=== PATIENT | female | born 1975 | race Caucasian/White ===

== ENCOUNTER 2022-02-06 20:05 | Inpatient (IN) | payer OTHER, SELFPAY ==
--- NOTE | ~2022-02-06 | CT_ITS ---
EXAMINATION: CT CHEST, ABDOMEN AND PELVIS WITH IV CONTRAST CLINICAL INFORMATION: Lung nodules. Peritoneal masses are in COMPARISON: Previous CT of the abdomen and pelvis and pelvic ultrasound from yesterday TECHNIQUE: Axial images through the chest, abdomen and pelvis following oral and 85 mL Omnipaque 350 intravenous contrast. Sagittal and coronal reconstructions on the technologist workstation were performed. Patient dose 151+3 3 9 mg/cm. This CT examination was performed using dose optimization techniques as appropriate, variously including the following: *Automated exposure control *Adjustment of mA and/or kV according to patient size (this includes techniques or standardized protocols for targeted exams where dose is matched to indication/reason for exam; i.e. extremities or head) *Use of iterative reconstruction technique FINDINGS: Chest: There is evidence of emphysema. There are innumerable small pulmonary nodules largest pulmonary nodules. Largest right pulmonary nodule measures 4 mm in the right upper lobe axial image 166 and right lower lobe axial image 341 series 7. Largest left pulmonary nodule measures 4 mm in the left lower lobe axial image 247 and axial image 340 series 7. There is a peripheral or subpleural 6 mm right lower lobe nodule axial image 228 series 7.. This may represent a subpleural lymph node. There is bilateral hilar and mediastinal lymphadenopathy. Largest lymph node is a right hilar lymph node measuring 1.2 x 1.4 cm. The heart does not appear enlarged. There is no pericardial effusion. There is coronary artery calcification. There is no pleural effusion or pleural thickening. No chest wall mass or enlarged axillary lymph nodes are seen in Visualized thyroid gland is unremarkable. Abdomen and pelvis: The liver and gallbladder are unremarkable. There is no biliary duct dilatation. The spleen is unremarkable. The pancreas is unremarkable. The adrenal glands are unremarkable. There is moderate right hydronephrosis. There is a 4 x 6 mm right lower pole renal stone. Left kidney is normal. The bladder is is not optimally distended. The bladder may be displaced anteriorly for example sagittal reconstructed image 48. There are multiple complex partially solid partially cystic pelvic masses. The ovaries are not identified as separate from these masses. The uterus may be identified and displaced anteriorly and sagittal reconstructed image 54. Mass or masses measure 20 cm in length and 20 cm in AP dimension and 14 cm in transverse dimension. There is a small amount of ascites decreased post paracentesis. No definite adenopathy is seen. Vascular structures are unremarkable. No hernia is seen. There is question of a sclerotic lesion in the superior T2 vertebral body. CT/CT abdomen pelvis w con IMPRESSION: Chest: Innumerable small pulmonary nodules. Bilateral hilar and mediastinal lymphadenopathy. Abdomen and pelvis: Large complex cystic partially solid pelvic mass/masses. Ascites. Moderate right hydronephrosis. 6 mm right renal stone. The uterus may be displaced anteriorly and inferiorly from the pelvic masses. Pelvic masses may be ovarian in origin.
--- NOTE | ~2022-02-06 | US_ITS ---
EXAMINATION: ULTRASOUND GUIDED PARACENTESIS. CLINICAL INFORMATION: Malignant ascites. COMPARISON: None TECHNIQUE: Following explaining ultrasound-guided paracentesis procedure, benefits and risk, a written consent was obtained. Patient was placed supine on ultrasound stretcher and preliminary ultrasound imaging was obtained through the abdomen. An optimal site was selected along the right mid quadrant and marked on the skin. The marked area was cleaned and draped in usual sterile manner. 1% lidocaine was injected puncture site. Through a small skin incision a 5 [place] Mediaeh catheter was advanced into the peritoneal space. After observing fluid return, the stylet was withdrawn and catheter connected to vacuum bottle via connecting cannula. After obtaining all fluid and observing no more fluid remaining, the catheter was removed and complete hemostasis achieved at puncture site, sterile dressing applied postprocedure. Patient tolerated procedure extremely well. Patient was monitored by IR nursing during the exam. No conscious sedation was utilized FINDINGS: There is a large amount of free fluid seen on on preliminary ultrasound imaging. Approximately 6.7 L of clear dark yellowish fluid was drained without immediate complications. None of this fluid was sent to lab. US/US paracentesis abd w/image IMPRESSION: Successful therapeutic paracentesis performed. Patient will get a CT abdomen pelvis with contrast following hydration.
--- NOTE | ~2022-02-06 | CT_ITS ---
EXAMINATION: CT ABDOMEN AND PELVIS WITHOUT CONTRAST CLINICAL INFORMATION: Abdominal distention COMPARISON: None TECHNIQUE: Multidetector volumetric imaging was performed from the superior aspect of the liver through the pubic symphysis. Sagittal and coronal reformatted images were obtained on the technologist's workstation. This CT examination was performed using dose optimization techniques as appropriate, variously including the following: *Automated exposure control *Adjustment of mA and/or kV according to patient size (this includes techniques or standardized protocols for targeted exams where dose is matched to indication/reason for exam; i.e. extremities or head) *Use of iterative reconstruction technique DLP: 590 mGy-cm FINDINGS: LUNG BASES: Mild basilar atelectasis. 4 mm nodule left base image 10. Cannot exclude 2 smaller nodules versus atelectatic change on image 14 laterally. Each 4 mm. LIVER, GALLBLADDER, AND BILIARY TREE: The liver is normal in size, shape, and attenuation. No focal hepatic lesion or biliary ductal dilatation is present. The gallbladder is unremarkable with no evidence of radiopaque gallstones, gallbladder wall thickening, or obvious pericholecystic inflammatory changes. PANCREAS: Unremarkable. SPLEEN: Unremarkable. ADRENAL GLANDS: The adrenal glands are not adequately visualized. No definitive finding in the region. KIDNEYS AND URETERS: The left kidney is within normal limits. Areas of decreased attenuation associated with the right kidney. Morphologically suggestive of hydronephrosis. Several negative Hounsfield units are noted. Fatty tumor cannot be excluded. Possible cystic change lower pole on right with a peripheral calcification. BLADDER: Bladder appears decompressed. GASTROINTESTINAL TRACT: There is significant ascites throughout the abdomen pelvis. The bowel pattern is felt to be nonobstructing. ABDOMINAL WALL: No significant hernia is appreciated. LYMPH NODES: Normal. VASCULAR: Unremarkable. PELVIC VISCERA: The deep pelvis shows a mixed cystic solid area and I suspect a large pelvic mass. Measures approximately 12 x 13 cm. Anterior to this may be another large mass versus unopacified bowel. The second area measures approximately 13.3 x 9.8 cm. OSSEOUS STRUCTURES: Unremarkable. CT/CT abdomen pelvis wo con IMPRESSION: This exam is abnormal. There is massive ascites present. In addition I suspect pelvic masses. Tumor needs to be considered. Ultrasound is recommended. In addition there is hydronephrosis of the right kidney likely present but the etiology is indeterminate here. Etiology could possibly be obstruction at the level of the questionable pelvic mass as described in the pelvis Some small lung nodules left base. These may be incidental but given the other findings described CT of the chest would be recommended. Fleischner guidelines were followed.
--- NOTE | ~2022-02-06 | US_ITS ---
EXAMINATION: US PELVIS CLINICAL INFORMATION: Pelvic mass. COMPARISON: CT of the abdomen and pelvis done on 02/06/2022. TECHNIQUE: Ultrasound of the pelvis is performed using transabdominal transducer along with Doppler. Transvaginal examination was not performed due to patient's discomfort and pain. FINDINGS: There are multiple solid-appearing hypervascular masses identified within the pelvis. Central areas of avascular hypoechogenicities are noted, may represent cystic degeneration versus necrosis. The visualized larger masses measures approximately 13.0 x 11.3 x 13.0 cm and 14.4 x 9.5 x 10.2 cm. Large amount of ascites fluid with internal low-level echoes is also noted. Nonvisualized uterus and ovaries. US/US pelvic complete IMPRESSION: 1. Concordant with prior CT study dated 02/06/2022, multiple hypervascular solid appearing masses are identified within the pelvis, the largest measures 14.4 cm. Large amount of ascites with low-level internal echoes is also present. 2. Nonvisualized uterus and ovaries.
[2022-02-06 20:13] VITALS: BP 142/103; PULSE 76; RESP 18; TEMP 36.6; O2SAT 100; BMI 20.8
[2022-02-06 20:31] LABS: MANUAL DIFF FLAG NO
[2022-02-06 20:35] LABS: Basophils Absolute Auto 0.1 X10*3/uL (0.0-0.2); Basophils Percent Auto 0.9 % (0-2); Eosinophils Absolute Auto 0.1 X10*3/uL (0.0-0.4); Eosinophils Percent Auto 1.3 % (0-4); Hematocrit 38.9 % (37.0-47.0); Imm Gran Abs Auto 0.04 X10*3/uL (0.00-0.03); Imm Gran Pct Auto 0.4 % (0.0-0.4); Lymphocytes Absolute Auto 1.7 X10*3/uL (1.2-4.9); Lymphocytes Percent Auto 15.8 % (20-40); Mean Corpuscular HGB Conc 33.4 g/dl (31.0-35.0); Mean Corpuscular Hemoglobin 27.1 pg (27.0-33.0); Mean Platelet Volume 9.3 fL (9.4-12.3); Monocytes Absolute Auto 0.6 X10*3/uL (0.1-1.2); Monocytes Percent Auto 5.7 % (2-11); Neutrophils Percent Auto 75.9 % (45-73); Platelet Count 451 X10*3/uL (160-400); Red Cell Distribution Width 16.7 % (11.0-16.0); White Blood Count 10.5 X10*3/uL (4.8-10.8)
[2022-02-06 21:10] LABS: Alanine Aminotransferase 8 U/L (0-31); Albumin Level 3.1 g/dL (3.5-5.0); Alkaline Phosphatase 111 U/L (39-117); Anion Gap 14 (12-20); Aspartate Amino Transferase 15 U/L (5-31); Bilirubin Total < 0.2 mg/dL (0.0-1.0); Blood Urea Nitrogen 22 mg/dL (9-16); Calcium 8.7 mg/dL (8.4-10.2); Carbon Dioxide 27 mmol/L (22-29); Chloride 99 mmol/L (96-108); Creatinine Clr Calc Pharmacy 37.6; Estimated Glomerular Filt Rate 32; Glucose Random 104 mg/dL (60-115); Sodium 136 mmol/L (135-145); Total Protein 6.5 g/dL (6.5-8.0)
[2022-02-06 21:42] LABS: Lipase 34 U/L (8-78)
[2022-02-06 21:47] LABS: Troponin-I High Sensitivity < 3.5 ng/L (<3.5-17.0)
--- NOTE | 2022-02-06 21:51 | ED.ABDPAIN ---
HPI - Abdominal Pain General Chief Complaint: Abdominal Pain Stated Complaint: abd swelling Time Seen by Provider: 02/06/22 21:10 Source: patient Mode of arrival: EMS History of Present Illness HPI narrative: 46-year-old female who lives at home with her kids presents via ambulance for complaints of abdominal pain and distension for the past 2 weeks associated with fevers and chills and denies any recent alcohol use. Specifically, patient states that she has not used alcohol in ?years?. Patient denies any chest pain/shortness of breath but states that she has a burning sensation extending up from her abdomen and denies any urinary symptoms. Otherwise, patient denies any hematemesis, melena/hematochezia. Related Data Allergies Allergy/AdvReac Type Severity Reaction Status Date / Time Sulfa (Sulfonamide Allergy Unknown HIVES, Unverified 06/14/20 15:48 Antibiotics) NAUSEA/VOMITING [SULFA (SULFONAMIDE ANTIBIOTICS)] sulfa Allergy Unknown Uncoded 07/23/17 00:00 Review of Systems Review of Systems Pertinent positives and negatives as stated in HPI 10 point review of systems is otherwise negative. [facility] Past Medical History Source: nursing notes reviewed Social History Social History Advance Directives: No Advance Directives Information Provided: Yes Physical Exam ED Vital Signs: Vital Signs - 24 hr 02/06/22 20:13 Temperature 97.8 F Pulse Rate 76 Respiratory Rate 18 Blood Pressure 142/103 H Pulse Oximetry 100 BMI result Body Mass Index 20.8 VITAL SIGNS: Reviewed. GENERAL: Cachectic, in no acute distress. HEAD: Normocephalic/atraumatic, bilateral temporal wasting EYES: PERRLA, EOMI, no scleral icterus EARS: Ext canals without abnormality OROPHARYNX: no oral lesions noted, posterior pharynx clear LUNGS: Normal breath sounds. No adventitious sounds or accessory muscle use. SpO2<100> CARDIOVASCULAR: Regular rate and rhythm without noted murmurs, no JVD or mild bilateral ankle swelling ABDOMEN: Soft, diffusely tender without rebound, dilated abdominal wall veins noted, mass noted at lower abdomen. MUSCULOSKELETAL: No tenderness, deformities, or effusions noted on gross inspection. EXTREMITIES: No cyanosis, clubbing or edema. SKIN: Inspection of the skin reveals no rashes, no jaundice appreciated. NEUROLOGIC: Alert and oriented x 4. Procedures Paracentesis Time Out Performed: Yes Local Anesthetic: lidocaine 1% Amount of anesthesia used (mL): 2.5 Fluid: clear and sent to lab for analysis Post Procedure Exam: awake, alert, normal BP, normal HR and normal SpO2 Patient Tolerated Procedure: well and no complications Complications: none Course Course Course Narrative: 46-year-old female with history and clinical presentation suggestive and concerning for likely intra-abdominal mass possibly ovarian there is no jaundice/icterus or recent/chronic alcohol intake to suggest liver cirrhosis and on review of liver labs remains unlikely. Review of all investigations consistent with intra-abdominal mass and suspect that patient's JANETT is secondary to CT reported possible compression by the mass. I discussed this case with the inpatient hospitalist who accepts admission. I did perform an ultrasound-guided paracentesis at the bedside with the removal of 3 L of ascites which was sent to the lab for further testing. Patient was consented before hand. Patient was informed of all results and findings. MDM - Abdominal Pain Lab Data Result diagrams: 02/06/22 20:27 02/06/22 20:43 Labs: Lab Results 02/06/22 02/06/22 02/06/22 Range/Units 20:27 20:27 20:43 WBC 10.5 (4.8-10.8) X10*3/uL RBC 4.80 (4.20-5.50) X10*6/uL Hgb 13.0 (12.0-16.0) g/dl Hct 38.9 (37.0-47.0) % MCV 81.0 (80.0-98.0) fL MCH 27.1 (27.0-33.0) pg MCHC 33.4 (31.0-35.0) g/dl RDW 16.7 H (11.0-16.0) % Plt Count 451 H (160-400) X10*3/uL MPV 9.3 L (9.4-12.3) fL Immature Gran % (Auto) 0.4 (0.0-0.4) % Neut % (Auto) 75.9 H (45-73) % Lymph % (Auto) 15.8 L (20-40) % [place] % (Auto) 5.7 (2-11) % Eos % (Auto) 1.3 (0-4) % Baso % (Auto) 0.9 (0-2) % Lymph # (Auto) 1.7 (1.2-4.9) X10*3/uL [place] # (Auto) 0.6 (0.1-1.2) X10*3/uL Eos # (Auto) 0.1 (0.0-0.4) X10*3/uL Baso # (Auto) 0.1 (0.0-0.2) X10*3/uL Abs Immat Gran (auto) 0.04 H (0.00-0.03) X10*3/uL Absolute Neuts (auto) 8.0 (2.0-8.3) x10*3/uL Absolute Nucleated RBC 0.000 (0.0-0.012) X10*3/uL Nucleated RBC % (auto) 0.0 (0.0-0.2) /100WBC Sodium 136 (135-145) mmol/L Potassium 4.0 (3.3-5.1) mmol/L Chloride 99 (96-108) mmol/L Carbon Dioxide 27 (22-29) mmol/L Anion Gap 14 (12-20) BUN 22 H (9-16) mg/dL Creatinine 1.69 H (0.5-1.4) mg/dL Estim Creat Clear Calc 37.6 Estimated GFR 32 Random Glucose 104 (60-115) mg/dL Calcium 8.7 (8.4-10.2) mg/dL Total Bilirubin < 0.2 (0.0-1.0) mg/dL AST 15 (5-31) U/L ALT 8 (0-31) U/L Alkaline Phosphatase 111 (39-117) U/L Lactate Dehydrogenase 193 (122-220) U/L Troponin I High Sens < 3.5 (<3.5-17.0) ng/L Total Protein 6.5 (6.5-8.0) g/dL Albumin 3.1 L (3.5-5.0) g/dL Lipase 34 (8-78) U/L Critical Care Time Critical Care Time Critical Care Time: Yes Total Critical Care Time: 30 Attestation: I personally attest to this time spent taking care of the patient. Discharge Plan Discharge Clinical Impression: Ascites, Pelvic mass, JANETT (acute kidney injury), Abdominal pain, Weight loss Patient Disposition: Admitted As Inpatient
[2022-02-06 22:27] VITALS: BP 131/89; PULSE 67; RESP 18; TEMP 36.8; O2SAT 96
--- NOTE | 2022-02-06 22:31 | PM.IMHP ---
History of Present Illness Date of Service: 02/06/22 Chief Complaint: Abdominal pain/distension 46-year-old female with a past medical history of tobacco dependence presented to the hospital with a chief complaint of abdominal pain/distension/weight loss. Patient reports that over the past 2-3 weeks he has been having gradually increasing abdominal distension; associated tenderness in the abdomen. Mentioned that she has decreased oral intake. Mentions she has decreased appetite and has been losing weight and lost almost 20 lb in 2 weeks. Denies any numbness tingling or focal weakness. Denies any fever chills. Reports he has chronic cough-attributes to her smoking history. Denies taking any home medications. Denies any toxic habits. Review of all other systems is negative except mentioned above ER course: Per ER team patient noted a significant abdominal distension; plan for diagnostic and therapeutic tap. CT abdomen showed new onset ascites with pelvic masses PMFSH Pertinent family history: Mother has breast cancer Social History Advance Directives: No Advance Directives Information Provided: Yes Meds Allergies Allergy/AdvReac Type Severity Reaction Status Date / Time Sulfa (Sulfonamide Allergy Unknown HIVES, Unverified 06/14/20 15:48 Antibiotics) NAUSEA/VOMITING [SULFA (SULFONAMIDE ANTIBIOTICS)] sulfa Allergy Unknown Uncoded 07/23/17 00:00 Physical Exam Vital Signs and Narrative: Vital Signs: Last Vital Signs Temp 98.3 F 02/06/22 22:27 Pulse 67 02/06/22 22:27 Resp 18 02/06/22 22:27 BP 131/89 02/06/22 22:27 Pulse Ox 96 02/06/22 22:27 BMI result Body Mass Index 20.8 Gen: Appears be in no acute distress; cachectic HEENT: NCAT, dry mucosa. Pulmonary: Vesicular breath sounds, fair air entry CVS: Normal S1-S2 Abdomen: BS+, distended, tender diffusely, fluid thrill present, mildly firm Extremities: Warm well perfused Neuro: Alert and awake. Grossly nonfocal Results Labs CBC and Chem 7: 02/06/22 20:27 02/06/22 20:43 Labs: Laboratory Results - last 24 hr 02/06/22 02/06/22 02/06/22 20:27 20:27 20:43 MCV 81.0 MCH 27.1 MCHC 33.4 RDW 16.7 H Plt Count 451 H MPV 9.3 L Immature Gran % (Auto) 0.4 Neut % (Auto) 75.9 H Lymph % (Auto) 15.8 L [place] % (Auto) 5.7 Eos % (Auto) 1.3 Baso % (Auto) 0.9 Lymph # (Auto) 1.7 [place] # (Auto) 0.6 Eos # (Auto) 0.1 Baso # (Auto) 0.1 Abs Immat Gran (auto) 0.04 H Absolute Neuts (auto) 8.0 Absolute Nucleated RBC 0.000 Nucleated RBC % (auto) 0.0 Anion Gap 14 Estim Creat Clear Calc 37.6 Estimated GFR 32 Random Glucose 104 Calcium 8.7 Total Bilirubin < 0.2 AST 15 ALT 8 Alkaline Phosphatase 111 Troponin I High Sens < 3.5 Total Protein 6.5 Albumin 3.1 L Lipase 34 Imaging Radiologist's Impressions: Impressions Abdomen/Pelvis CT 02/06/22 21:57 IMPRESSION: This exam is abnormal. There is massive ascites present. In addition I suspect pelvic masses. Tumor needs to be considered. Ultrasound is recommended. In addition there is hydronephrosis of the right kidney likely present but the etiology is indeterminate here. Etiology could possibly be obstruction at the level of the questionable pelvic mass as described in the pelvis Some small lung nodules left base. These may be incidental but given the other findings described CT of the chest would be recommended. Fleischner guidelines were followed. Assessment and Plan (1) Ascites: Status: Acute (2) Pelvic mass: Status: Acute (3) JANETT (acute kidney injury): Status: Acute (4) Abdominal pain: Status: Acute (5) Weight loss: Status: Acute Plan 46-year-old female with a past medical history of tobacco dependence presented to the hospital with a chief complaint of abdominal pain/distension/weight loss. Noted to have following New onset ascites: Diagnostic/therapeutic staff being performed in the ER. Will follow-up studies. Pain control Liver panel within normal limits. Question malignant ascites-given pelvic masses Oncology consult Pelvic ultrasound JANETT: Concern for hepatorenal. Nephrology consult. Avoid nephrotoxins Protein calorie malnutrition: Nutrition consult DVT prophylaxis: Subcu heparin Code status: Full code Quality Stroke Does the patient have a stroke diagnosis?: No VTE Prior VTE?: No VTE Risk Level:: Medical - moderate - high VTE Device Contraindication: Treatment Not Indicated VTE Drug Contraindication: N/A - Med Ordered
[2022-02-06 23:07] LABS: Lactate Dehydrogenase 193 U/L (122-220)
[2022-02-06 23:29] VITALS: BP 124/77; PULSE 57; RESP 18; O2SAT 97
[2022-02-06 23:36] VITALS: BP 126/77; PULSE 54; RESP 18; O2SAT 98
[2022-02-06 23:41] VITALS: BP 125/74; PULSE 55; RESP 18; O2SAT 98
--- NOTE | 2022-02-06 23:49 | PC.NURSE ---
Pt had 3L of fluid drained with paracentesis. BP stable throughout procedure. Pt resting comfortably at this time with decreased pain.
[2022-02-06 23:54] LABS: MN% 87.4 %; PMN% 12.6 %; RBC Peritoneal Fluid 0.002 X10*6/uL; WBC Peritoneal Fluid 0.404 X10*3/uL
[2022-02-07] VITALS (8 sets, daily range): BP systolic 116–140; BP diastolic 73–91; PULSE 56–69; RESP 16–18; TEMP 36.6–36.9; O2SAT 97–99
[2022-02-07] LABS: COVID-19 Test Negative (Negative); IDNOW Serial# 08D9AD1C
[2022-02-07 00:01] LABS: Influenza A Negative (Negative); Influenza B2 Negative (Negative)
[2022-02-07 00:12] LABS: BF Shift QC OK YES; Lymphocyte Peritoneal Fl 29 %; Man Diluent Bkgrd OK YES; Monocytes Peritoneal Fl 4 %; Neutrophils Peritoneal Fluid 5 %; Other Peritioneal Fl 62 %
[2022-02-07] MEDS: 0.9 % Sodium Chloride Flush 3 ML SYRINGE IVFLUSH ×2 (00:36→09:13)
[2022-02-07 06:47] LABS: MANUAL DIFF FLAG NO
[2022-02-07 06:54] LABS: Basophils Absolute Auto 0.1 X10*3/uL (0.0-0.2); Basophils Percent Auto 0.9 % (0-2); Eosinophils Percent Auto 0.4 % (0-4); Hematocrit 37.3 % (37.0-47.0); Hemoglobin 12.2 g/dl (12.0-16.0); Imm Gran Abs Auto 0.04 X10*3/uL (0.00-0.03); Imm Gran Pct Auto 0.4 % (0.0-0.4); Lymphocytes Absolute Auto 1.3 X10*3/uL (1.2-4.9); Lymphocytes Percent Auto 14.1 % (20-40); Mean Corpuscular HGB Conc 32.7 g/dl (31.0-35.0); Mean Corpuscular Hemoglobin 26.6 pg (27.0-33.0); Mean Corpuscular Volume 81.4 fL (80.0-98.0); Mean Platelet Volume 9.7 fL (9.4-12.3); Monocytes Absolute Auto 0.6 X10*3/uL (0.1-1.2); Monocytes Percent Auto 6.2 % (2-11); Platelet Count 436 X10*3/uL (160-400); Red Blood Count 4.58 X10*6/uL (4.20-5.50); Red Cell Distribution Width 16.5 % (11.0-16.0)
[2022-02-07 07:23] LABS: Anion Gap 17 (12-20); Blood Urea Nitrogen 20 mg/dL (9-16); Calcium 8.7 mg/dL (8.4-10.2); Carbon Dioxide 24 mmol/L (22-29); Chloride 99 mmol/L (96-108); Creatinine Clr Calc Pharmacy 41.5; Estimated Glomerular Filt Rate 36; Glucose Random 94 mg/dL (60-115); Potassium 4.6 mmol/L (3.3-5.1); Sodium 135 mmol/L (135-145)
--- NOTE | 2022-02-07 08:44 | PHA.MEDREC ---
Pharmacy Consult ? Medication Reconciliation Pharmacy has completed the medication reconciliation. spoke with patient- patient is not taking any medications, rx or otc
[2022-02-07] MEDS: HYDROmorphone HCl 0.5 MG/0.5 ML SYRINGE IVPUSH ×4 (09:09→21:13)
--- NOTE | 2022-02-07 09:18 | PC.NURSE ---
pt came back from us pt is alert and oriented skin pwd, respirations even and unlabored, pt abd hard and distended and pt reports pain 6/10 denies nausea at this time, vs stable
--- NOTE | 2022-02-07 10:02 | PC.NURSE ---
pt reports feeling better pain at 1/10
[2022-02-07 12:00] LABS: pH Peritoneal Fluid 7.54
[2022-02-07 12:02] LABS: Albumin Peritoneal Fluid 2.9; LDH Peritoneal Fluid 233; Total Protein Peritoneal Fluid 4.7
[2022-02-07 12:03] LABS: Amylase Peritoneal Fluid 32; Glucose Peritoneal Fluid 92
--- NOTE | 2022-02-07 12:36 | P.CNHO_ITS ---
Subjective - Subjective Chief complaint: Consult for: Ascites. Ovarian/Peritoneal disease. Patient: new to practice Consult date: 02/07/22 Primary Care Provider: None Physician Medical Summary: DIAGNOSIS: ASCITES. OVARIAN MASS. HPI - Consult Narrative Reason for consult: Consult For: 1. Ascites. 2. Adnexal mass. Narrative: Sheela Austin is a pleasant 46 year old lady, who presented with the complaints: of abdominal pain and distension/weight loss. She mentioned that over the past 2-3 weeks he has been having gradually increasing abdominal distension; with abdominal pain, associated tenderness in the abdomen. She also mentioned that she has decreased po intake. She has decreased appetite and has lost almost 20 lb in 2 weeks. Denies any numbness tingling or focal weakness. Denies any fever chills. Reports he has chronic cough-attributes to her smoking history. Denies taking any home medications. Denies any toxic habits. Review of all other systems is negative except mentioned above. ER course: She noted a significant abdominal distension. CT abdomen from 02/06: This exam is abnormal. There is massive ascites present. In addition I suspect pelvic masses. Tumor needs to be considered. Ultrasound is recommended. In addition there is hydronephrosis of the right kidney likely present but the etiology is indeterminate here. Etiology could possibly be obstruction at the level of the questionable pelvic mass as described in the pelvis. Some small lung nodules left base. These may be incidental but given the other findings described CT of the chest would be recommended. CT abdomen showed new onset ascites with pelvic masses. She underwent paracentesis with removal of 3 L of fluids. The results are not back yet. Past medical history of: Tobacco dependence. FAMILY HISTORY: She does have a family history of malignancies. One of these is colon cancer. 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 She is not . She has 3 children. She smokes a pack a day. Denies alcohol. ROS: She complains of easy fatigability. Denies fever chills or night sweats. Appetite has been on existing. She lost 40 lb over the past 6 months. She does complain of headaches and dizziness. She complains of chest pain and trouble breathing due to abdominal distension. She has abdominal distension and belly pain and tenderness. Complains of nausea but not vomiting. Her bowels are rather constipated. Denies gross blood in the stools. She has increased frequency of micturition. Complains of diffuse body aches. Has lower extremity weakness. She does feel rather depressed. No skin rashes or pruritus. Review of Systems - Constitutional Reports system reviewed and no additional complaints, except as documented, Reports fatigue, Reports poor appetite, Reports weakness, Reports weight loss, Denies fever(s), Denies weight gain - Eyes Reports system reviewed and no additional complaints, except as documented - ENT Reports system reviewed and no additional complaints, except as documented - Cardiovascular Reports system reviewed and no additional complaints, except as documented - Respiratory Reports no additional respiratory complaints - Gastrointestinal Reports system reviewed and no additional complaints, except as documented, Reports bloating, Reports constipation, Reports feeling full early, Reports dyspepsia, Reports heartburn, Reports nausea - Genitourinary Reports no additional female genitourinary complaints - Musculoskeletal Reports system reviewed and no additional complaints, except as documented - Integumentary/Breasts Skin/Breast: Reports no additional skin complaints - Neurologic Reports system reviewed and no additional complaints, except as documented, Reports weakness Comments: Headache and dizziness. - Psychiatric Reports system reviewed and no additional complaints, except as documented - Endocrine Reports no additional endocrine complaints - Hematologic/Lymphatic Reports system reviewed and no additional complaints, except as documented - Allergic/Immunologic Reports system reviewed and no additional complaints, except as documented Oncology Screenings - ECOG Performance Status ECOG Performance Status: 1 [facility] Social History: Social History (Last Reviewed 02/06/22 @ 21:53 by Britany Julien MD) Tobacco History: Patient Tobacco Use Status: Never used Tobacco Second Hand Smoke Exposure: Yes Substance Use History: Use of substances other than those prescribed or required for medical reasons : No Advance Directives: Advance Directives: No Advance Directives Information Provided: Yes Occupation Assessmet: service: No Current occupational status: unemployed Second hand tobacco smoke exposure: Yes Home Medications and Allergies Current Medications: Current Medications Acetaminophen (Acetaminophen 325 Mg Tablet) 650 mg PO Q6H PRN PRN Reason: Pain, Mild (Pain Scale 1-3) Hydromorphone HCl (Hydromorphone Hcl 0.5 Mg/0.5 Ml Syringe) 0.5 mg IVPUSH Q4H P RN; Protocol PRN Reason: Pain, Severe (Pain Scale 7-10) Last Admin: 02/07/22 09:09 Dose: 0.5 mg Documented by: Pharmacy Consult (Consult Rx Perform Med Rec) 1 each MISCELLANE ONCE PRN PRN Reason: Consult order Sodium Chloride (0.9 % Sodium Chloride Flush 3 Ml Syringe) 3 ml IVFLUSH QSHIFT [facility] Last Admin: 02/07/22 09:13 Dose: 3 ml Documented by: Home Medications Medication Instructions Recorded Confirmed Type No Known Home Meds 02/07/22 02/07/22 History Allergies Allergy/AdvReac Type Severity Reaction Status Date / Time Sulfa (Sulfonamide Allergy Unknown HIVES, Unverified 06/14/20 15:48 Antibiotics) NAUSEA/VOMITING [SULFA (SULFONAMIDE ANTIBIOTICS)] sulfa Allergy Unknown Uncoded 07/23/17 00:00 Physical Exam Vital signs: Vital Signs Temp 98.4 F 02/07/22 09:04 Pulse 64 02/07/22 09:04 Resp 18 02/07/22 09:04 BP 125/82 02/07/22 09:04 Pulse Ox 97 02/07/22 09:04 Intake & Output 02/06/22 02/07/22 02/07/22 18:59 06:59 18:59 Other: Weight 58.5 kg Weight 58.5 kg - Constitutional Present: moderate distress - Routine HEENT Exam Head: Present: normal inspection, normocephalic ENT: Present: mucous membranes moist - Routine Neck Exam Absent: lymphadenopathy, thyromegaly - Routine Respiratory Exam Present: CTAB - Routine Abdominal Exam Present: distended, normal bowel sounds, tenderness - Routine Extremities Exam Present: nontender - Routine Skin Exam Present: intact - Routine Neurological Exam Present: alert, oriented X3 - Detailed Neurological Exam: Coma Scale Eye Opening: Spontaneous (4) Verbal Response: Oriented (5) Motor Response: Obeys commands (6) Juan Coma Scale Total: 15 Hem/Onc Consult Result - Labs CBC & Chem 7: 02/07/22 06:25 02/07/22 06:25 Labs: Short CBC 02/06/22 02/07/22 Range/Units 20:27 06:25 WBC 10.5 9.0 (4.8-10.8) X10*3/uL Hgb 13.0 12.2 (12.0-16.0) g/dl Hct 38.9 37.3 (37.0-47.0) % Plt Count 451 H 436 H (160-400) X10*3/uL BMP 02/06/22 02/07/22 20:43 06:25 Sodium 136 135 Potassium 4.0 4.6 Chloride 99 99 Carbon Dioxide 27 24 BUN 22 H 20 H Creatinine 1.69 H 1.53 H Calcium 8.7 8.7 Liver Function 02/06/22 Range/Units 20:43 Total Bilirubin < 0.2 (0.0-1.0) mg/dL AST 15 (5-31) U/L ALT 8 (0-31) U/L Alkaline Phosphatase 111 (39-117) U/L Albumin 3.1 L (3.5-5.0) g/dL Assessment and Plan Patient Active problem list reviewed?: Yes (1) Pelvic mass Status: Acute Assessment and plan: This is a pleasant 46-year-old lady who presents with abdominal distension, pain, early satiety and weight loss. CT abdomen from 02/06: This exam is abnormal. There is massive ascites present. In addition I suspect pelvic masses. Tumor needs to be considered. Ultrasound is recommended. In addition there is hydronephrosis of the right kidney likely present but the etiology is indeterminate here. Etiology could possibly be obstruction at the level of the questionable pelvic mass as described in the pelvis. Some small lung nodules left base. These may be incidental but given the other findings described CT of the chest would be recommended. She underwent a paracentesis with removal of 3 L of fluid in the ED. results of that are pending. I reviewed imaging with the radiologist. Pelvic ultrasound done today revealed: 1. Concordant with prior CT study dated 02/06/2022, multiple hypervascular solid appearing masses are identified within the pelvis, the largest measures 14.4 cm. Large amount of ascites with low-level internal echoes is also present. 2. Nonvisualized uterus and ovaries. CEA level: 1204. LDH: 193. CA 125: Pending. Patient most likely has ovarian carcinoma. PLAN: Will set appointment with Dr.Tashanna Xavier dehydrogenation converter helper Oncology at [facility] in the near future. Appointment has been set up for Thursday. Meanwhile institute symptom control. Thank you, Cc: Myers. Sánchez. - Time Spent With Patient Time Spent with Patient (in minutes): 35
--- NOTE | 2022-02-07 12:42 | MHC.CM.PN ---
Met with pt to discuss d/c plan: pt resides alone without services or DME. is Dr. Juan mckenzie x3 with [employer] [facility] [employer] x 1. Pt states no barriers to care: has a supportive dtr and sister who can assist if needed. At this time, it seems likely that pt will be able to return to home with outpt services however, CM will follow for changes in plan. Pt's dtr to transport.
--- NOTE | 2022-02-07 13:04 | PM.GYNCN ---
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 The patient has been having gradual increase in abdominal distention treated with tenderness over the last 2-3 weeks associated with decrease in oral intake, decreased appetite and weight loss around 20 lb in the last [address] abdomen on 02/06 showed the following This exam is abnormal. There is massive ascites present. In addition I suspect pelvic masses. Tumor needs to be considered. Ultrasound is recommended. In addition there is hydronephrosis of the right kidney likely present but the etiology is indeterminate here. Etiology could possibly be obstruction at the level of the questionable pelvic mass as described in the pelvis. Some small lung nodules left base. These may be incidental but given the other findings described CT of the chest would be recommended. Pelvic ultrasound done this morning showed the followin. Concordant with prior CT study dated 02/06/2022, multiple hypervascular solid appearing masses are identified within the pelvis, the largest measures 14.4 cm. Large amount of ascites with low-level internal echoes is also present. 2. Nonvisualized uterus and ovaries. The patient underwent paracentesis with removal of 3 L of fluids. The results are not back yet. cc:: CC: Tone Sánchez MD [facility] Social History Social History Patient Tobacco Use Status: Never used Tobacco Second Hand Smoke Exposure: Yes Use of substances other than those prescribed or required for medical reasons: No Advance Directives: No Advance Directives Information Provided: Yes service: No Current occupational status: unemployed Meds Allergies Allergy/AdvReac Type Severity Reaction Status Date / Time Sulfa (Sulfonamide Allergy Unknown HIVES, Unverified 06/14/20 15:48 Antibiotics) NAUSEA/VOMITING [SULFA (SULFONAMIDE ANTIBIOTICS)] sulfa Allergy Unknown Uncoded 07/23/17 00:00 Active Medications: Current Medications Acetaminophen (Acetaminophen 325 Mg Tablet) 650 mg PO Q6H PRN PRN Reason: Pain, Mild (Pain Scale 1-3) Hydromorphone HCl (Hydromorphone Hcl 0.5 Mg/0.5 Ml Syringe) 0.5 mg IVPUSH Q4H PRN; Protocol PRN Reason: Pain, Severe (Pain Scale 7-10) Last Admin: 02/07/22 12:53 Dose: 0.5 mg Documented by: Sodium Chloride (Ns) 1,000 mls @ 150 mls/hr IVCONT .Q6H40M [facility] Stop: 02/07/22 19:39 Pharmacy Consult (Consult Rx Perform Med Rec) 1 each MISCELLANE ONCE PRN PRN Reason: Consult order Sodium Chloride (0.9 % Sodium Chloride Flush 3 Ml Syringe) 3 ml IVFLUSH QSHIFT [facility] Last Admin: 02/07/22 09:13 Dose: 3 ml Documented by: Home Medications Medication Instructions Recorded Confirmed Last Taken Type No Known Home Meds 02/07/22 02/07/22 Unknown History 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 Physical Exam Vitals Vital signs: Temp Pulse Resp BP Pulse Ox 98.4 F 64 18 125/82 97 02/07/22 09:04 02/07/22 09:04 02/07/22 09:04 02/07/22 09:04 02/07/22 09:04 BMI result Body Mass Index 20.8 Abdomen Auscultation/Inspection/Palpation: Normal bowel sounds, Distended, Tenderness (Diffuse tenderness) and Other (fluid thrill present) Female Genitalia (Pelvic) Bladder/Urethra: Normal meatus Vulva: No lesions Cervix: Grossly normal Adnexa/Parametria: Parametrial Tenderness: Bilateral and Parametrial Mass: Bilateral Additional Comments: Twenty-two week size mass nonmobile adherent to the pelvic sidewalls and the cul-de-sac [employer]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 - Results Labs CBC & Chem 7: 02/07/22 06:25 02/07/22 06:25 Labs: Short CBC 02/06/22 02/07/22 Range/Units 20:27 06:25 WBC 10.5 9.0 (4.8-10.8) X10*3/uL Hgb 13.0 12.2 (12.0-16.0) g/dl Hct 38.9 37.3 (37.0-47.0) % Plt Count 451 H 436 H (160-400) X10*3/uL BMP 02/06/22 02/07/22 20:43 06:25 Sodium 136 135 Potassium 4.0 4.6 Chloride 99 99 Carbon Dioxide 27 24 BUN 22 H 20 H Creatinine 1.69 H 1.53 H Calcium 8.7 8.7 Liver Function 02/06/22 Range/Units 20:43 Total Bilirubin < 0.2 (0.0-1.0) mg/dL AST 15 (5-31) U/L ALT 8 (0-31) U/L Alkaline Phosphatase 111 (39-117) U/L Albumin 3.1 L (3.5-5.0) g/dL Imaging US - abdomen: Radiologist's impression: ITS Impressions Abdomen/Pelvis CT 02/06/22 21:57 IMPRESSION: This exam is abnormal. There is massive ascites present. In addition I suspect pelvic masses. Tumor needs to be considered. Ultrasound is recommended. In addition there is hydronephrosis of the right kidney likely present but the etiology is indeterminate here. Etiology could possibly be obstruction at the level of the questionable pelvic mass as described in the pelvis Some small lung nodules left base. These may be incidental but given the other findings described CT of the chest would be recommended. Fleischner guidelines were followed. Pelvis Ultrasound 02/07/22 08:50 IMPRESSION: 1. Concordant with prior CT study dated 02/06/2022, multiple hypervascular solid appearing masses are identified within the pelvis, the largest measures 14.4 cm. Large amount of ascites with low-level internal echoes is also present. 2. Nonvisualized uterus and ovaries. Assessment and Plan (1) Pelvic mass: Status: Acute Discussed with the patient differential diagnosis of the findings include but not limited to: core oven tender or non core oven tender malignancies, highly suspicious of ovarian cancer. CEA 1204, CA 125 pending. 4 mm left lung base nodule, rule out metastatic disease; Hydronephrosis with acute kidney injury, suspect ureteral obstruction secondary to the pelvic mass. If JANETT does not improve, consider urology consult. Recommend referral to [facility] Consultant Oncology at [facility] for further management. The patient has an appointment on Thursday Dr. Xavier at [facility] core oven tender Oncology in the office.
--- NOTE | 2022-02-07 13:13 | PC.NURSE ---
patient to IR at this time
--- NOTE | 2022-02-07 13:48 | P.PNIM_ITS ---
Subjective Subjective Date of Service: 02/07/22 Interval History: Abdominal distension/pain improved No FHx of ovarian, uterine, or breast CA States had normal Pap 1 yr ago Review of Systems Review of Systems: Yes all other systems are reviewed and are negative Physical Exam Vital Signs: Vital Signs: Last Vital Signs Temp 98.4 F 02/07/22 09:04 Pulse 64 02/07/22 09:04 Resp 18 02/07/22 09:04 BP 125/82 02/07/22 09:04 Pulse Ox 97 02/07/22 09:04 BMI result Body Mass Index 20.8 Gen: in no acute distress HEENT: sclera anicteric, moist mucus membranes Neck: supple Lungs: clear to auscultation bilaterally Heart: regular rate and rhythm, no murmurs Abd: tense ascites Ext: no edema Skin: warm/well-perfused Neuro: alert and oriented x3, no focal findings Psych: appropriate affect Objective Data Active Medications Acetaminophen (Acetaminophen 325 Mg Tablet) 650 mg PO Q6H PRN PRN Reason: Pain, Mild (Pain Scale 1-3) Hydromorphone HCl (Hydromorphone Hcl 0.5 Mg/0.5 Ml Syringe) 0.5 mg IVPUSH Q4H PRN; Protocol PRN Reason: Pain, Severe (Pain Scale 7-10) Last Admin: 02/07/22 12:53 Dose: 0.5 mg Documented by: MALDONADO Sodium Chloride (Ns) 1,000 mls @ 150 mls/hr IVCONT .Q6H40M [facility] Stop: 02/07/22 19:39 Pharmacy Consult (Consult Rx Perform Med Rec) 1 each MISCELLANE ONCE PRN PRN Reason: Consult order Sodium Chloride (0.9 % Sodium Chloride Flush 3 Ml Syringe) 3 ml IVFLUSH QSHIFT [facility] Last Admin: 02/07/22 09:13 Dose: 3 ml Documented by: LITA Labs CBC & Chem 7: 02/07/22 06:25 02/07/22 06:25 Labs: Laboratory Results - last 24 hr 02/06/22 02/06/22 02/06/22 20:27 20:27 20:43 MCV 81.0 MCH 27.1 MCHC 33.4 RDW 16.7 H Plt Count 451 H MPV 9.3 L Immature Gran % (Auto) 0.4 Neut % (Auto) 75.9 H Lymph % (Auto) 15.8 L Carson % (Auto) 5.7 Eos % (Auto) 1.3 Baso % (Auto) 0.9 Lymph # (Auto) 1.7 Carson # (Auto) 0.6 Eos # (Auto) 0.1 Baso # (Auto) 0.1 Abs Immat Gran (auto) 0.04 H Absolute Neuts (auto) 8.0 Absolute Nucleated RBC 0.000 Nucleated RBC % (auto) 0.0 Anion Gap 14 Estim Creat Clear Calc 37.6 Estimated GFR 32 Random Glucose 104 Calcium 8.7 Total Bilirubin < 0.2 AST 15 ALT 8 Alkaline Phosphatase 111 Lactate Dehydrogenase 193 Troponin I High Sens < 3.5 Total Protein 6.5 Albumin 3.1 L Lipase 34 Carcinoembryonic Ag Peritoneal pH Peritoneal WBC Peritoneal RBC Periton Neutrophils Periton Lymphocytes Peritoneal Monocytes Peritoneal Other Cells Peritoneal Tot Protein Peritoneal Albumin Peritoneal LDH Peritoneal Glucose Peritoneal Amylase COVID-19 (ELIZABETH) COVID-19 Clin Com Influenza Type A (JOSE) Influenza Type B (JOSE) Influenza A & B Note 02/06/22 02/06/22 02/06/22 23:31 23:31 23:31 MCV MCH MCHC RDW Plt Count MPV Immature Gran % (Auto) Neut % (Auto) Lymph % (Auto) Carson % (Auto) Eos % (Auto) Baso % (Auto) Lymph # (Auto) Carson # (Auto) Eos # (Auto) Baso # (Auto) Abs Immat Gran (auto) Absolute Neuts (auto) Absolute Nucleated RBC Nucleated RBC % (auto) Anion Gap Estim Creat Clear Calc Estimated GFR Random Glucose Calcium Total Bilirubin AST ALT Alkaline Phosphatase Lactate Dehydrogenase Troponin I High Sens Total Protein Albumin Lipase Carcinoembryonic Ag Peritoneal pH Peritoneal WBC 0.404 Peritoneal RBC 0.002 Periton Neutrophils 5 Periton Lymphocytes 29 Peritoneal Monocytes 4 Peritoneal Other Cells 62 Peritoneal Tot Protein Peritoneal Albumin Peritoneal LDH Peritoneal Glucose Peritoneal Amylase COVID-19 (ELIZABETH) Negative COVID-19 Clin Com See Note Influenza Type A (JOSE) Negative Influenza Type B (JOSE) Negative Influenza A & B Note See Note 02/06/22 02/06/22 02/07/22 23:31 23:31 06:25 MCV 81.4 MCH 26.6 L MCHC 32.7 RDW 16.5 H Plt Count 436 H MPV 9.7 Immature Gran % (Auto) 0.4 Neut % (Auto) 78.0 H Lymph % (Auto) 14.1 L Carson % (Auto) 6.2 Eos % (Auto) 0.4 Baso % (Auto) 0.9 Lymph # (Auto) 1.3 Carson # (Auto) 0.6 Eos # (Auto) 0.0 Baso # (Auto) 0.1 Abs Immat Gran (auto) 0.04 H Absolute Neuts (auto) 7.0 Absolute Nucleated RBC 0.000 Nucleated RBC % (auto) 0.0 Anion Gap Estim Creat Clear Calc Estimated GFR Random Glucose Calcium Total Bilirubin AST ALT Alkaline Phosphatase Lactate Dehydrogenase Troponin I High Sens Total Protein Albumin Lipase Carcinoembryonic Ag Peritoneal pH 7.54 Peritoneal WBC Peritoneal RBC Periton Neutrophils Periton Lymphocytes Peritoneal Monocytes Peritoneal Other Cells Peritoneal Tot Protein 4.7 Peritoneal Albumin 2.9 Peritoneal LDH 233 Peritoneal Glucose 92 Peritoneal Amylase 32 COVID-19 (ELIZABETH) COVID-19 Clin Com Influenza Type A (JOSE) Influenza Type B (JOSE) Influenza A & B Note 02/07/22 06:25 MCV MCH MCHC RDW Plt Count MPV Immature Gran % (Auto) Neut % (Auto) Lymph % (Auto) Carson % (Auto) Eos % (Auto) Baso % (Auto) Lymph # (Auto) Carson # (Auto) Eos # (Auto) Baso # (Auto) Abs Immat Gran (auto) Absolute Neuts (auto) Absolute Nucleated RBC Nucleated RBC % (auto) Anion Gap 17 Estim Creat Clear Calc 41.5 Estimated GFR 36 Random Glucose 94 Calcium 8.7 Total Bilirubin AST ALT Alkaline Phosphatase Lactate Dehydrogenase Troponin I High Sens Total Protein Albumin Lipase Carcinoembryonic Ag 1204.30 Peritoneal pH Peritoneal WBC Peritoneal RBC Periton Neutrophils Periton Lymphocytes Peritoneal Monocytes Peritoneal Other Cells Peritoneal Tot Protein Peritoneal Albumin Peritoneal LDH Peritoneal Glucose Peritoneal Amylase COVID-19 (ELIZABETH) COVID-19 Clin Com Influenza Type A (JOSE) Influenza Type B (JOSE) Influenza A & B Note ITS Impressions Abdomen/Pelvis CT 02/06/22 21:57 IMPRESSION: This exam is abnormal. There is massive ascites present. In addition I suspect pelvic masses. Tumor needs to be considered. Ultrasound is recommended. In addition there is hydronephrosis of the right kidney likely present but the etiology is indeterminate here. Etiology could possibly be obstruction at the level of the questionable pelvic mass as described in the pelvis Some small lung nodules left base. These may be incidental but given the other findings described CT of the chest would be recommended. Fleischner guidelines were followed. Pelvis Ultrasound 02/07/22 08:50 IMPRESSION: 1. Concordant with prior CT study dated 02/06/2022, multiple hypervascular solid appearing masses are identified within the pelvis, the largest measures 14.4 cm. Large amount of ascites with low-level internal echoes is also present. 2. Nonvisualized uterus and ovaries. Microbiology Microbiology Results: Microbiology 02/06/22 23:31 Gram Stain - Final Abdominal Fluid Assessment and Plan (1) Abdominal pain: Status: Acute (2) JANETT (acute kidney injury): Status: Acute (3) Pelvic mass: Status: Acute Plan 46yo F presenting with 2-3 wk of abdominal distension, involuntary weight loss. Found to have extensive ascites, large pelvic mass likely causing ureteral obstruction leading to R hydronephrosis # malignant ascites # pelvic mass - repeat CT A/P, this time with contrast, pending after repeat paracentesis. highly suspect ovarian cancer. 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
[2022-02-07] MEDS: Lidocaine HCl 1 % MPF 5 ML VIAL SUBCUT (14:26)
[2022-02-07] MEDS: 0.9 % Sodium Chloride 1,000 ML 150 ML IVCONT (14:55)
[2022-02-07] MEDS: iohexoL 350 MG/ML 100 ML INFUS..BTL IV (16:02)
--- NOTE | 2022-02-07 17:36 | PM.CNNEP ---
History of Present Illness Reason for Consult Consult date: 02/07/22 Reason for consult: JANETT Chief Complaint Chief complaint: New onset ascites History of Present Illness Narrative: 46-year-old female with a past medical history of tobacco dependence presented to the hospital with a chief complaint of abdominal pain, distension, and weight loss. She reports that over the past 2-3 weeks she has had increasing abdominal distension with tenderness in the abdomen. She has decreased appetite and has been losing weight and lost almost 20 lb in 2 weeks. Denies f/c/s. In the ED, Her initial labwork demonstrated BUN/Cr = 22/1.69 with no prior history of known CKD. She underwent a CT abdomen showed new onset ascites with pelvic masses and right sided hydronephrosis. SHe later underwent paracentesis with removal of 3L fluid. ROS otherwise negative. Review of Systems Review of Systems Yes all other systems are reviewed and are negative ON LICENSE OF [facility] Social History Social History Patient Tobacco Use Status: Never used Tobacco Second Hand Smoke Exposure: Yes Use of substances other than those prescribed or required for medical reasons: No Advance Directives: No Advance Directives Information Provided: Yes service: No Current occupational status: unemployed Meds Allergies Allergy/AdvReac Type Severity Reaction Status Date / Time Sulfa (Sulfonamide Allergy Unknown HIVES, Unverified 06/14/20 15:48 Antibiotics) NAUSEA/VOMITING [SULFA (SULFONAMIDE ANTIBIOTICS)] sulfa Allergy Unknown Uncoded 07/23/17 00:00 Active Medications: Current Medications Acetaminophen (Acetaminophen 325 Mg Tablet) 650 mg PO Q6H PRN PRN Reason: Pain, Mild (Pain Scale 1-3) Hydromorphone HCl (Hydromorphone Hcl 0.5 Mg/0.5 Ml Syringe) 0.5 mg IVPUSH Q4H PRN; Protocol PRN Reason: Pain, Severe (Pain Scale 7-10) Last Admin: 02/07/22 17:31 Dose: 0.5 mg Documented by: Sodium Chloride (Ns) 1,000 mls @ 150 mls/hr IVCONT .Q6H40M HERNANDEZ Stop: 02/07/22 19:39 Last Admin: 02/07/22 14:55 Dose: 150 mls/hr Documented by: Pharmacy Consult (Consult Rx Perform Med Rec) 1 each MISCELLANE ONCE PRN PRN Reason: Consult order Sodium Chloride (0.9 % Sodium Chloride Flush 3 Ml Syringe) 3 ml IVFLUSH QSHIFT [facility] Last Admin: 02/07/22 09:13 Dose: 3 ml Documented by: Home Medications Medication Instructions Recorded Confirmed Last Taken Type No Known Home Meds 02/07/22 02/07/22 Unknown History Physical Exam Vital Signs: Last Vital Signs Temp 98.2 F 02/07/22 16:00 Pulse 64 02/07/22 16:00 Resp 16 02/07/22 16:00 BP 130/90 H 02/07/22 16:00 Pulse Ox 98 02/07/22 16:00 BMI result Body Mass Index 20.8 Const General: cooperative, comfortable and no acute distress HEENT Head: Yes normocephalic and Yes atraumatic Neck Neck: Yes no JVD Resp Auscultation: clear to auscultation bilaterally Cardio Jugular venous distension: no JVD Rate: regular rate Rhythm: regular rhythm Heart sounds: S1 normal heart sound present and S2 normal heart sound present GI Inspection: Yes distended Palpation (GI): Soft to palpation Neuro General: no focal motor deficits Extrem General: Yes no clubbing, cyanosis or edema Results Lab Results Result Diagrams: 02/07/22 06:25 02/07/22 06:25 Lab results: Chemistry 02/06/22 02/07/22 20:43 06:25 Sodium 136 135 Potassium 4.0 4.6 Carbon Dioxide 27 24 BUN 22 H 20 H Creatinine 1.69 H 1.53 H Calcium 8.7 8.7 Hematology 02/06/22 02/07/22 20:27 06:25 WBC 10.5 9.0 Hgb 13.0 12.2 Plt Count 451 H 436 H Assessment and Plan (1) JANETT (acute kidney injury): Status: Acute (2) Ascites: Status: Acute Plan #) JANETT, non-oliguric: CT imaging noted with right sided hydronephrosis. Suggest walker catheter for accurate I/O's. Urinalysis and u-lytes added. serological workup added given new onset janett with noted pelvic masses. Avoidance of nsaids, acei/arb, renal dosing abx, avoidance of iv constrast. Noted hypoalbuminemia. Will add upcr/macr to assess for nephrotic syndrome. Procedures Date of Service Date of Service: 02/07/22
[2022-02-07 21:15] LABS: Appearance Urine CLEAR; Color Urine YELLOW; Glucose Urine UA NEG (NEG); Leukocyte Esterase Urine NEG (NEG); Nitrite Urine NEG (NEG); PH 6.5 (5.0-8.0); Specific Gravity - Urine 1.015 (1.005-1.025); UACC Culture Trigger NO; Urine Blood NEG (NEG); Urine Ketones NEG (NEG); Urine Protein 1+ MG/DL (NEG-TRACE)
[2022-02-07 21:25] LABS: Bacteria Urine 1+ /LPF; Squamous Epithelial Cell Urine 1+ /LPF
[2022-02-07] MEDS: Nicotine Polacrilex 2 MG GUM BUCCAL (23:27)
[2022-02-08] MEDS: HYDROmorphone HCl 0.5 MG/0.5 ML SYRINGE IVPUSH ×3 (00:48→06:15)
[2022-02-08 04:00] VITALS: BP 134/70; PULSE 58; RESP 16; TEMP 36.4; O2SAT 96
[2022-02-08 06:32] LABS: Anion Gap 13 (12-20); Blood Urea Nitrogen 18 mg/dL (9-16); Calcium 8.3 mg/dL (8.4-10.2); Carbon Dioxide 24 mmol/L (22-29); Chloride 99 mmol/L (96-108); Creatinine Clr Calc Pharmacy 51.2; Estimated Glomerular Filt Rate 46; Glucose Random 103 mg/dL (60-115); Potassium 4.1 mmol/L (3.3-5.1); Sodium 132 mmol/L (135-145)
[2022-02-08 07:50] VITALS: BP 134/93; PULSE 75; RESP 17; TEMP 36.5; O2SAT 100
[2022-02-08] MEDS: Nicotine Polacrilex 2 MG GUM BUCCAL (09:10)
[2022-02-08] MEDS: 0.9 % Sodium Chloride Flush 3 ML SYRINGE IVFLUSH (09:10)
--- NOTE | 2022-02-08 10:29 | P.DS_ITS ---
DS: Providers Provider Date of Service: 02/08/22 Date of admission: 02/06/22 22:27 Date of discharge: 02/08/22 Primary care physician: Na Physician Consults: 02/06/22 22:27 Consult to Hematology / Oncology Routine Consulting Provider: Shannon Rehman Reason for consultation: New onset ascites, pelvic masses Consult to Nephrology Routine Consulting Provider: Ish Edmondson Reason for consultation: JANETT; question hepatorenal 02/07/22 08:19 Consult to Obstetrics / Gynecology Routine Consulting Provider: Hesham York Reason for consultation: ascites, hydronephrosis, pelvic mass, US Pending, CA 125t pending DS: Diagnosis Discharge Diagnosis (1) JANETT (acute kidney injury): Status: Acute (2) Ascites: Status: Acute (3) Hydronephrosis: Status: Acute (4) Pulmonary metastases: Status: Acute (5) Pelvic mass: Status: Acute (6) Primary cancer of ovary with widespread metastatic disease: Status: Acute DS: Summary Hospital Course Hospital Course: from admission H+P by Dora Botello, 02/06/22: 46-year-old female with a past medical history of tobacco dependence presented to the hospital with a chief complaint of abdominal pain/distension/weight loss.? Patient reports that over the past 2-3 weeks he has been having gradually increasing abdominal distension; associated tenderness in the abdomen.? Mentioned that she has decreased oral intake.? Mentions she has decreased appetite and has been losing weight and lost almost 20 lb in 2 weeks.? Denies any numbness tingling or focal weakness.? Denies any fever chills.? Reports he has chronic cough-attributes to her smoking history.? Denies taking any home medications.? Denies any toxic habits.? Review of all other systems is negative except mentioned above ER course: Per ER team patient noted a significant abdominal distension; plan for diagnostic and therapeutic tap.? CT abdomen showed new onset ascites with pelvic masses This 46yo F presenting with 2-3 wk of abdominal distension and involuntary weight loss was found to have extensive ascites and a large pelvic mass likely causing some degree of obstructive uropathy with hydronephrosis. A paracentesis was done in the ED, then a repeat paracentesis followed by a repeat CT A/P. Pathology from the ascites fluid is pending at the time of discharge. Repeat CT demonstrated large complex cystic pelvic masses with ascites, R hydronephrosis, and anterior/inferior diplacement of the pelvic masses. In the chest were innumerable pulmonary nodules with bilateral hilar and mediastinal adenopathy. She is suspected to have metastatic ovarian cancer. I discussed her case with Dr Rhett Xavier, the planning division superintendent of Gynecologic Oncology at [facility], and she will see the patient in her clinic on 02/10/22, at 9:00am. She was discharged with a prescription for hydrocodcone/APAP for pain control. Time Spent with Patient Time attestation: Total time spent providing and/or coordinating discharge services: Discharge coordination time: Greater than 30 minutes Quality: Safe Use of Opioids Does Pt have an Active Cancer Diagnosis on the Problem List?: No Quality: Stroke Does the patient have a stroke diagnosis?: No Physical Exam Vital Signs: Vital Signs: Last Vital Signs Temp 97.7 F 02/08/22 07:50 Pulse 75 02/08/22 07:50 Resp 17 02/08/22 07:50 BP 134/93 H 02/08/22 07:50 Pulse Ox 100 02/08/22 07:50 BMI result Body Mass Index 20.8 Gen: in no acute distress HEENT: sclera anicteric, moist mucus membranes Neck: supple Lungs: clear to auscultation bilaterally Heart: regular rate and rhythm, no murmurs Abd: non-tense ascites, paracentesis sites without bleeding Ext: no edema Skin: warm/well-perfused Neuro: alert and oriented x3, no focal findings Psych: appropriate affect DS: Data Data Completed and Pending Completed studies during hospitalization [Text1]: Laboratory Tests 02/06/22 02/06/22 02/06/22 20:27 20:27 20:43 WBC 10.5 RBC 4.80 Hgb 13.0 Hct 38.9 MCV 81.0 MCH 27.1 MCHC 33.4 RDW 16.7 H Plt Count 451 H MPV 9.3 L Immature Gran % (Auto) 0.4 Neut % (Auto) 75.9 H Lymph % (Auto) 15.[address] [place] % (Auto) 5.7 Eos % (Auto) 1.3 Baso % (Auto) 0.9 Lymph # (Auto) 1.7 [place] # (Auto) 0.6 Eos # (Auto) 0.1 Baso # (Auto) 0.1 Abs Immat Gran (auto) 0.04 H Absolute Neuts (auto) 8.0 Absolute Nucleated RBC 0.000 Nucleated RBC % (auto) 0.0 Sodium 136 Potassium 4.0 Chloride 99 Carbon Dioxide 27 Anion Gap 14 BUN 22 H Creatinine 1.69 H Estim Creat Clear Calc 37.6 Estimated GFR 32 Random Glucose 104 Calcium 8.7 Total Bilirubin < 0.2 AST 15 ALT 8 Alkaline Phosphatase 111 Lactate Dehydrogenase 193 Troponin I High Sens < 3.5 Total Protein 6.5 Albumin 3.1 L Lipase 34 Carcinoembryonic Ag Urinalysis Urine Color Urine Appearance Urine pH Ur Specific [place] Urine Protein Urine Glucose (UA) Urine Ketones Urine Blood Urine Nitrite Ur Leukocyte Esterase Urine RBC Urine WBC Ur Squamous Epith Cells Urine Bacteria Peritoneal pH Peritoneal WBC Peritoneal RBC Periton Neutrophils Periton Lymphocytes Peritoneal Monocytes Peritoneal Other Cells Peritoneal Tot Protein Peritoneal Albumin Peritoneal LDH Peritoneal Glucose Peritoneal Amylase COVID-19 (ELIZABETH) COVID-19 Clin Com Influenza Type A (JOSE) Influenza Type B (JOSE) Influenza A & B Note 02/06/22 02/06/22 02/06/22 23:31 23:31 23:31 WBC RBC Hgb Hct MCV MCH MCHC RDW Plt Count MPV Immature Gran % (Auto) Neut % (Auto) Lymph % (Auto) [place] % (Auto) Eos % (Auto) Baso % (Auto) Lymph # (Auto) [place] # (Auto) Eos # (Auto) Baso # (Auto) Abs Immat Gran (auto) Absolute Neuts (auto) Absolute Nucleated RBC Nucleated RBC % (auto) Sodium Potassium Chloride Carbon Dioxide Anion Gap BUN Creatinine Estim Creat Clear Calc Estimated GFR Random Glucose Calcium Total Bilirubin AST ALT Alkaline Phosphatase Lactate Dehydrogenase Troponin I High Sens Total Protein Albumin Lipase Carcinoembryonic Ag Urinalysis Urine Color Urine Appearance Urine pH Ur Specific [place] Urine Protein Urine Glucose (UA) Urine Ketones Urine Blood Urine Nitrite Ur Leukocyte Esterase Urine RBC Urine WBC Ur Squamous Epith Cells Urine Bacteria Peritoneal pH Peritoneal WBC 0.404 Peritoneal RBC 0.002 Periton Neutrophils 5 Periton Lymphocytes 29 Peritoneal Monocytes 4 Peritoneal Other Cells 62 Peritoneal Tot Protein Peritoneal Albumin Peritoneal LDH Peritoneal Glucose Peritoneal Amylase COVID-19 (ELIZABETH) Negative COVID-19 Clin Com See Note Influenza Type A (JOSE) Negative Influenza Type B (JOSE) Negative Influenza A & B Note See Note 02/06/22 02/06/22 02/07/22 23:31 23:31 06:25 WBC 9.0 RBC 4.58 Hgb 12.2 Hct 37.3 MCV 81.4 MCH 26.6 L MCHC 32.7 RDW 16.5 H Plt Count 436 H MPV 9.7 Immature Gran % (Auto) 0.4 Neut % (Auto) 78.0 H Lymph % (Auto) 14.[address] [place] % (Auto) 6.2 Eos % (Auto) 0.4 Baso % (Auto) 0.9 Lymph # (Auto) 1.3 [place] # (Auto) 0.6 Eos # (Auto) 0.0 Baso # (Auto) 0.1 Abs Immat Gran (auto) 0.04 H Absolute Neuts (auto) 7.0 Absolute Nucleated RBC 0.000 Nucleated RBC % (auto) 0.0 Sodium Potassium Chloride Carbon Dioxide Anion Gap BUN Creatinine Estim Creat Clear Calc Estimated GFR Random Glucose Calcium Total Bilirubin AST ALT Alkaline Phosphatase Lactate Dehydrogenase Troponin I High Sens Total Protein Albumin Lipase Carcinoembryonic Ag Urinalysis Urine Color Urine Appearance Urine pH Ur Specific [place] Urine Protein Urine Glucose (UA) Urine Ketones Urine Blood Urine Nitrite Ur Leukocyte Esterase Urine RBC Urine WBC Ur Squamous Epith Cells Urine Bacteria Peritoneal pH 7.54 Peritoneal WBC Peritoneal RBC Periton Neutrophils Periton Lymphocytes Peritoneal Monocytes Peritoneal Other Cells Peritoneal Tot Protein 4.7 Peritoneal Albumin 2.9 Peritoneal LDH 233 Peritoneal Glucose 92 Peritoneal Amylase 32 COVID-19 (ELIZABETH) COVID-19 Clin Com Influenza Type A (JOSE) Influenza Type B (JOSE) Influenza A & B Note 02/07/22 02/07/22 02/07/22 06:25 20:50 20:50 WBC RBC Hgb Hct MCV MCH MCHC RDW Plt Count MPV Immature Gran % (Auto) Neut % (Auto) Lymph % (Auto) [place] % (Auto) Eos % (Auto) Baso % (Auto) Lymph # (Auto) [place] # (Auto) Eos # (Auto) Baso # (Auto) Abs Immat Gran (auto) Absolute Neuts (auto) Absolute Nucleated RBC Nucleated RBC % (auto) Sodium 135 Potassium 4.6 Chloride 99 Carbon Dioxide 24 Anion Gap 17 BUN 20 H Creatinine 1.53 H Estim Creat Clear Calc 41.5 Estimated GFR 36 Random Glucose 94 Calcium 8.7 Total Bilirubin AST ALT Alkaline Phosphatase Lactate Dehydrogenase Troponin I High Sens Total Protein Albumin Lipase Carcinoembryonic Ag 1204.30 Urinalysis Cancelled Urine Color YELLOW Urine Appearance CLEAR Urine pH 6.5 Ur Specific [place] 1.015 Urine Protein 1+ H Urine Glucose (UA) NEG Urine Ketones NEG Urine Blood NEG Urine Nitrite NEG Ur Leukocyte Esterase NEG Urine RBC 1-4 Urine WBC 1-4 Ur Squamous Epith Cells 1+ Urine Bacteria 1+ Peritoneal pH Peritoneal WBC Peritoneal RBC Periton Neutrophils Periton Lymphocytes Peritoneal Monocytes Peritoneal Other Cells Peritoneal Tot Protein Peritoneal Albumin Peritoneal LDH Peritoneal Glucose Peritoneal Amylase COVID-19 (ELIZABETH) COVID-19 Clin Com Influenza Type A (JOSE) Influenza Type B (JOSE) Influenza A & B Note 02/08/22 05:57 WBC RBC Hgb Hct MCV MCH MCHC RDW Plt Count MPV Immature Gran % (Auto) Neut % (Auto) Lymph % (Auto) [place] % (Auto) Eos % (Auto) Baso % (Auto) Lymph # (Auto) [place] # (Auto) Eos # (Auto) Baso # (Auto) Abs Immat Gran (auto) Absolute Neuts (auto) Absolute Nucleated RBC Nucleated RBC % (auto) Sodium 132 L Potassium 4.1 Chloride 99 Carbon Dioxide 24 Anion Gap 13 BUN 18 H Creatinine 1.24 Estim Creat Clear Calc 51.2 Estimated GFR 46 Random Glucose 103 Calcium 8.3 L Total Bilirubin AST ALT Alkaline Phosphatase Lactate Dehydrogenase Troponin I High Sens Total Protein Albumin Lipase Carcinoembryonic Ag Urinalysis Urine Color Urine Appearance Urine pH Ur Specific [place] Urine Protein Urine Glucose (UA) Urine Ketones Urine Blood Urine Nitrite Ur Leukocyte Esterase Urine RBC Urine WBC Ur Squamous Epith Cells Urine Bacteria Peritoneal pH Peritoneal WBC Peritoneal RBC Periton Neutrophils Periton Lymphocytes Peritoneal Monocytes Peritoneal Other Cells Peritoneal Tot Protein Peritoneal Albumin Peritoneal LDH Peritoneal Glucose Peritoneal Amylase COVID-19 (ELIZABETH) COVID-19 Clin Com Influenza Type A (JOSE) Influenza Type B (JOSE) Influenza A & B Note ITS Impressions Abdomen/Pelvis CT 02/06/22 21:57 IMPRESSION: This exam is abnormal. There is massive ascites present. In addition I suspect pelvic masses. Tumor needs to be considered. Ultrasound is recommended. In addition there is hydronephrosis of the right kidney likely present but the etiology is indeterminate here. Etiology could possibly be obstruction at the level of the questionable pelvic mass as described in the pelvis Some small lung nodules left base. These may be incidental but given the other findings described CT of the chest would be recommended. Fleischner guidelines were followed. Pelvis Ultrasound 02/07/22 08:50 IMPRESSION: 1. Concordant with prior CT study dated 02/06/2022, multiple hypervascular solid appearing masses are identified within the pelvis, the largest measures 14.4 cm. Large amount of ascites with low-level internal echoes is also present. 2. Nonvisualized uterus and ovaries. Paracentesis Ultrasound 02/07/22 14:25 IMPRESSION: Successful therapeutic paracentesis performed. Patient will get a CT abdomen pelvis with contrast following hydration. Abdomen/Pelvis CT 02/07/22 16:07 IMPRESSION: Chest: Innumerable small pulmonary nodules. Bilateral hilar and mediastinal lymphadenopathy. Abdomen and pelvis: Large complex cystic partially solid pelvic mass/masses. Ascites. Moderate right hydronephrosis. 6 mm right renal stone. The uterus may be displaced anteriorly and inferiorly from the pelvic masses. Pelvic masses may be ovarian in origin. Chest CT 02/07/22 16:07 IMPRESSION: Chest: Innumerable small pulmonary nodules. Bilateral hilar and mediastinal lymphadenopathy. Abdomen and pelvis: Large complex cystic partially solid pelvic mass/masses. Ascites. Moderate right hydronephrosis. 6 mm right renal stone. The uterus may be displaced anteriorly and inferiorly from the pelvic masses. Pelvic masses may be ovarian in origin. Pending studies at discharge: Pending at discharge 02/07/22 08:00 Cytology [PTH] Stat Discharge Plan Discharge Patient Disposition: Home, Self-Care Discharge Diagnosis: ascites, hydronephrosis with acute kidney injury, pulmonary nodules suspected metastatic ovarian cancer Referrals: Rhett Xavier MD [Physician] - 02/10/22 (You have an appointment to see Dr Xavier, the Gynecologic Oncology chief at [facility], on 02/10/22, at 9:00am. Address is [address] [place] [address]. Phone number is [phone]) Po,Minor Oliveira MD [Physician] - 1 Week Discharge Medications: New nicotine (polacrilex) 2 mg Gum 2 mg buccal Q2H PRN (Reason: Nicotine Cravings) Qty: 100 0RF hydrocodone-acetaminophen 10-325 mg Tablet 1 tab PO Q6H PRN (Reason: severe pain) Qty: 12 0RF Discharge Orders: Discharge Order (Routine); Ordered 02/08/22 Ordered By: Tone Sánchez Diet: advance to usual diet Activity on Discharge: As tolerated Stand Alone Forms: Patient Portal Discharge page Care Plan Goals: diagnosis and treatment of pelvic mass suspected to be metastatic ovarian cancer Health Concerns: ascites, hydronephrosis with acute kidney injury, pulmonary nodules suspected metastatic ovarian cancer Plan of Treatment: You have an appointment to see Dr Xavier, the Gynecologic Oncology chief at [facility], on 02/10/22, at 8:00am. Address is [address] [place] [address]. Phone number is [phone] Take acetaminophen for mild-moderate pain, hydrocodone/APAP for severe pain. Quit smoking. Assessment: See Discharge Summary Patient Instructions: Ovarian Cancer (DC)
--- NOTE | 2022-02-08 10:40 | PC.NURSE ---
pt told this RN it was okay for MD to talk to pts mother, Raya . Verbal permission provided.
[2022-02-10 13:47] LABS: Anti Nuclear Antibody Screen NEGATIVE (NEGATIVE)
[2022-02-11 05:07] LABS: CA 125 New Method 385 U/mL (<35); CA-125 385 U/mL (<35)
[2022-02-11 14:22] LABS: Complement C3 90 mg/dL (83-193)
[2022-02-13 14:34] LABS: Kappa, Serum 310 mg/dL (176-443); Kappa/Lambda Ratio, Serum 2.04 (1.29-2.55); Lambda, Serum 152 mg/dL (91-240)
== END 2022-02-08 11:50 | disposition home or self-care (01) | DRG 530 ==
LOC: HO.ED 21:10 → HO.EDOVER 22:36 → HO.S3 02-07 17:21
PROVIDERS: Internal Medicine Medical Oncology; Internal Medicine Nephrology; Radiology Diagnostic Radiology; Admitting Provider Hospitalist; Emergency Provider Student in an Organized Health Care Education/Training Program; Visit Provider Family Medicine
PROC: 0W9G3ZZ Drainage of Peritoneal Cavity, Percutaneous Approach (ICD-10-PCS; principal; 2022-02-07 13:00)
DX: C56.9 Malignant neoplasm of unspecified ovary (principal); K76.7 Hepatorenal syndrome; R18.0 Malignant ascites; E46 Unspecified protein-calorie malnutrition; N17.9 Acute kidney failure, unspecified; N13.30 Unspecified hydronephrosis; Z20.822 Contact with and (suspected) exposure to COVID-19; Z68.20 Body mass index [BMI] 20.0-20.9, adult; F17.210 Nicotine dependence, cigarettes, uncomplicated; Z71.6 Tobacco abuse counseling; Z88.2 Allergy status to sulfonamides; Z79.899 Other long term (current) drug therapy
CPT/HCPCS: 36415; 49083; 71260; 74176; 74177; 76856; 80048; 80053; 81001; 82042; 82150; 82378; 82945; 83615; 83690; 83883; 83986; 84157; 84484; 85025; 86038; 86039; 86160; 86304; 87071; 87073; 87116; 87205; 87502; 87635; 88112; 88305; 88341; 88342; 89051; 99285; J1170; Q9967

== ENCOUNTER 2022-03-19 17:01 | Inpatient (IN) | payer OTHER, SELFPAY ==
--- NOTE | ~2022-03-19 | XR_ITS ---
EXAMINATION: PORTABLE CHEST 1 VIEW CLINICAL INFORMATION: sob . COMPARISON: 02/07/2022. TECHNIQUE: Portable frontal view of the chest was obtained. FINDINGS: Lungs are well-expanded. Increased interstitial and vascular markings are seen suggesting underlying mild interstitial edema. Tiny left effusion cannot be excluded. No pneumothorax. Cardiac and mediastinal silhouettes within normal limits for size. Mild degenerative changes in the shoulders. XR/XR chest 1V IMPRESSION: Increased interstitial and to lesser extent vascular markings seen. Subtle component of mild interstitial edema cannot be excluded in this setting
--- NOTE | 2022-03-19 17:11 | ECG_ITS ---
Test Reason : SHORTNESS OF BREATH Blood Pressure : / mmHG Vent. Rate : 098 BPM Atrial Rate : 098 BPM P-R Int : 128 ms QRS Dur : 122 ms QT Int : 390 ms P-R-T Axes : 057 150 003 degrees QTc Int : 497 ms Normal sinus rhythm Right bundle branch block Anteroseptal infarct , age undetermined Abnormal ECG No previous ECGs available Referred By: Yamel Grande Electronically Signed By:FELIZ REYNOLDS MD
[2022-03-19 17:15] VITALS: BP 100/60; BP 109/79; PULSE 103; PULSE 106; RESP 18; TEMP 36.4; O2SAT 93; BMI 16.6
--- NOTE | 2022-03-19 18:20 | PM.IMHP ---
History of Present Illness Date of Service: 03/19/22 Chief Complaint: dyspnea, abdominal swelling Ms Austin is a 46 year-old woman with no chronic medical problems until she came in to [facility] 02/06/22 with 3 weeks of abdominal distension and involuntary weight loss and was found to have extensive ascites and multiple neoplastic pelvic masses initially suspected to be ovarian in origin. She underwent paracentesis x2. She was discharged on 02/08/22 with follow-up with Gynecology Oncology. Subsequent CT showed a large pelvic mass mesenteric masses inseparable from bowel loops, extensive retroperitoneal/mediastinal/hilar adenopathy, and pulmonary nodules. A biopsy revealed a poorly-differentiated adenocarcinoma with signet ring features thought to be GI in origin. She underwent several paracenteses and met with [facility] on 02/28/22. Plan was for port placement and palliative chemotherapy with FOLFOX and Avastin. She was prescribed MSSR + oxycodone and another paracentesis was arranged. However, she presents today with worsening shortness of breath and abdominal distension with discomfort unrelieved by her pain medications. In the ED, she was noted to be hypoxic, requiring 15L O2 via NRB. She does not wish to continue with chemotherapy and is considering hospice services, but would like the ascites drained. She endorses weight loss, poor appetite, early satiety and severe abdominal and pelvic pain. Review of Systems Review of Systems: Yes all other systems are reviewed and are negative [facility] Medical History Abdominal pain JANETT (acute kidney injury) Ascites Pelvic mass Weight loss Pertinent family history: Mother had rectal CA at age 57 Social History Household Members: Family Housing: Apartment Do you presently have visiting nurse or other home services: No Patient Tobacco Use Status: Current everyday Tobacco user Tobacco use type: Cigarette e-Cigarette/Vaping Use: Never Used Second Hand Smoke Exposure: No Advance Directives: Yes Advance Directives on File: Yes Advance Directives Date on File: 02/10/22 service: No Current occupational status: unemployed Meds Allergies Allergy/AdvReac Type Severity Reaction Status Date / Time Sulfa (Sulfonamide Allergy Unknown HIVES, Verified 02/07/22 20:38 Antibiotics) NAUSEA/VOMITING [SULFA (SULFONAMIDE ANTIBIOTICS)] sulfa Allergy Severe Hives Uncoded 02/07/22 20:38 Active Medications: Current Medications Acetaminophen (Acetaminophen 325 Mg Tablet) 650 mg PO Q6H PRN PRN Reason: Pain, Mild (Pain Scale 1-3) Morphine Sulfate (Morphine Sulfate Er 30 Mg Tablet.Er) 30 mg PO Q12H HERNANDEZ Morphine Sulfate (Morphine Sulfate 4 Mg/Ml Cartridge) 4 mg IVPUSH Q4H PRN; Protocol PRN Reason: breakthrough pain Ondansetron HCl (Ondansetron Hcl 4 Mg/2 Ml Vial) 4 mg IVPUSH Q8H PRN PRN Reason: Nausea and Vomiting Oxycodone HCl (Oxycodone Hcl Immed Release 5 Mg Tablet) 10 mg PO Q4H PRN PRN Reason: moderate pain Sodium Chloride (0.9 % Sodium Chloride Flush 3 Ml Syringe) 3 ml IVFLUSH QSHIFT HERNANDEZ Physical Exam Vital Signs and Narrative: Vital Signs: Last Vital Signs Temp 97.6 F 03/19/22 17:15 Pulse 103 H 03/19/22 17:15 Resp 18 03/19/22 17:15 BP 109/79 03/19/22 17:15 O2 Del Method 03/19/22 17:15 Oxygen Flow Rate 15 03/19/22 17:15 BMI result Body Mass Index 16.6 Gen: respiratory distress, cachexia HEENT: sclera anicteric, dry mucus membranes Neck: supple Lungs: diminished bilaterally Heart: tachycardic, no murmurs Abd: large amount of tense ascites Ext: 2+ BLE edema Skin: thin Neuro: alert and oriented x3, no focal findings Psych: appropriate affect Assessment and Plan (1) Acute respiratory failure with hypoxia: Status: Acute (2) Malignant ascites: Status: Acute (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 # acute hypoxic respiratory failure - supplemental O2, wean as tolerated. will need to arrange home O2 for eventual discharge. drainage of ascites should improve her respiratory status # malignant ascites - therapeutic paracentesis at bedside by ED physician to be performed. # metastatic adenocarcinoma, signet ring features - no longer wishes to undergo chemotherapy and interested in discussing hospice services; will consult CM. continue chronic opioid medications. VTE ppx: declines code: DNR/DNI She designates her friend Maddy Gambino as her primary HCP and her mother Raya Austin as her secondary HCP Quality Stroke Does the patient have a stroke diagnosis?: No VTE Prior VTE?: No VTE Risk Level:: Medical - moderate - high VTE Device Contraindication: Treatment Not Indicated VTE Drug Contraindication: Treatment Not Indicated
--- NOTE | 2022-03-19 18:21 | PC.NURSE ---
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 Pt is resting comfortably and informed how to work the call vidales for assistance
--- NOTE | 2022-03-19 18:32 | ED.GENADULT ---
HPI - General Adult General Chief complaint: Upper Respiratory Symptoms Stated complaint: SOB Time Seen by Provider: 03/19/22 17:09 Source: patient, EMS and other ([employer], healthcare proxy) Mode of arrival: EMS Limitations: no limitations History of Present Illness HPI narrative: Patient comes to the emergency room via EMS for severe shortness of breath. Patient is known to have metastatic cancer. The [employer] states that usually the patient has an oxygen saturation in the low 90s, but today her oxygen saturation was 60% on room air. When EMS arrived, patient's oxygen saturation was 57% on room air. Patient states that she has been feeling extremely weak and has had small amounts of vomiting. EMS started her on 15 L on a non-rebreather, oxygen saturation barely improving to the low 80s. Related Data Home Medications Medication Instructions Recorded Confirmed docusate sodium 100 mg capsule 1 cap PO BID 03/19/22 03/19/22 morphine 30 mg tablet,extended 1 tab PO Q12H 03/19/22 03/19/22 release oxycodone 10 mg tablet 2 tab PO Q4H PRN pain 03/19/22 03/19/22 sennosides 8.6 mg tablet (senna) 1 tab PO DAILY 03/19/22 03/19/22 Previous Rx's Medication Instructions Recorded nicotine (polacrilex) 2 mg gum 2 mg buccal Q2H PRN Nicotine 02/08/22 Cravings #100 ea Allergies Allergy/AdvReac Type Severity Reaction Status Date / Time Sulfa (Sulfonamide Allergy Unknown HIVES, Verified 02/07/22 20:38 Antibiotics) NAUSEA/VOMITING [SULFA (SULFONAMIDE ANTIBIOTICS)] sulfa Allergy Severe Hives Uncoded 02/07/22 20:38 Review of Systems Review of Systems: Constitutional : Ongoing weight loss, severe fatigue, generalized malaise, no fever ENT/Mouth : No Hearing loss, No Ear Pain, No Nasal Congestion, No Sinus Pain, No Hoarseness, No sore throat, No Rhinorrhea, No Swallowing Difficulty Eyes: No Eye Pain, No Swelling, No Redness, No Foreign Body, No Discharge, No Vision Changes Cardiovascular : No Chest Pain, No SOB, No Dyspnea on Exertion, No Orthopnea, No Edema, No Palpitations Respiratory : Difficulty breathing, complaining of abdominal pressure causing pressure worsening her respiration Gastrointestinal : Complaining of nausea, vomiting, abdominal pressure from ascites Genitourinary : no irregular bleeding, No Dysuria, No Urinary Frequency, No Hematuria, No Urinary Incontinence, No Urgency, No Flank Pain, No Urinary Flow Changes, No Hesitancy Musculoskeletal : Diffuse myalgias and weakness Skin : No Skin Lesions, No rash Neuro : No Weakness, No Numbness, No Paresthesias, No Loss of Consciousness, No Dizziness, No Headache Psych : No Anxiety/Panic, No Depression, No SI/HI/AH/VH, No Social Issues, Heme/Lymph: No Bruising, No Bleeding,No Lymphadenopathy Endocrine : No Polyuria, No Polydipsia, No Temperature Intolerance [facility] Past Medical History Medical History Abdominal pain JANETT (acute kidney injury) Ascites Pelvic mass Weight loss Social History Social History Household Members: Family Housing: Apartment Do you presently have visiting nurse or other home services: No Patient Tobacco Use Status: Current everyday Tobacco user Tobacco use type: Cigarette e-Cigarette/Vaping Use: Never Used Second Hand Smoke Exposure: No Advance Directives: Yes Advance Directives on File: Yes Advance Directives Date on File: 02/10/22 service: No Current occupational status: unemployed Physical Exam ED Vital Signs: Vital Signs - 24 hr 03/19/22 17:15 Temperature 97.6 F Pulse Rate 103 H Respiratory Rate 18 Blood Pressure 109/79 Oxygen Delivery Method Non-Rebreather Mask BMI result Body Mass Index 16.6 Const Other: Appearance: Alert. Oriented X3. Ill-appearing, cachectic, very decompensated, weak emaciated Eyes: Pupils equal, round and reactive to light. ENT: Pharynx normal. Neck: Normal inspection. Neck supple. No lymph nodes noted. No crepitus CVS: Normal heart rate and rhythm. Pulses normal. Normal S1 and S2 Respiratory: No respiratory distress. Oxygen saturation in the low 60s in room air, on 15 L Abdomen: Distended, nontender, positive fluid wave Skin: Skin warm and dry. Pale Extremities: No lower extremity edema. No Lacerations. No Rash Neuro: Oriented X 3. No motor deficit. No sensory deficit. Moving all extremities. No slurred speech. CN 2 through 12 grossly intact Psych: calm, cooperative, normal affect Course Course Course Narrative: Patient states that she was supposed to get a port today at [facility] and start chemotherapy on Thursday. I discussed with the patient the reality and extent of her illness. Patient states that she does not want to be full code anymore, does not want chemotherapy, patient would like to go home with hospice. Patient's [employer] and healthcare proxy is at bedside, they are both considering that this is the best option a time. In the meantime, patient does not want any further lab work to be done. However, patient is requesting to have a therapeutic paracentesis which will help her breathe more comfortably. Per patient's request, we will not be obtaining any labs. Patient is on 15 L of oxygen. I discussed the patient with Dr. Sánchez, patient will be admitted for hypoxia and pain control. We will go ahead and do the paracentesis for comfort. Per records from [facility], patient has had multiple taps in the past, INR has not been an issue, we will not obtain labs here including PT/INR, platelet count or fluid analysis Case management has been consulted. They will discuss with the patient and her [employer] home hospice options. During the paracentesis, we were able to extract 2100 cc of brownish clear liquid. Patient tolerated well the procedure. As mentioned above, we will not be sending any labs Procedures Paracentesis Time Out Performed: Yes Local Anesthetic: lidocaine 1% Amount of anesthesia used (mL): 10 Fluid: clear Post Procedure Exam: awake, alert and normal BP Patient Tolerated Procedure: no complications Complications: none Discharge Plan Discharge Clinical Impression: Malignant ascites, Hypoxic, Pain Patient Disposition: Admitted As Inpatient
--- NOTE | 2022-03-19 19:50 | PHA.MEDREC ---
MED REC OMPLETED BASED ON PHARMACY HISTORY Pharmacy Consult ? Medication Reconciliation Pharmacy has completed the medication reconciliation.
[2022-03-19] MEDS: Ondansetron ODT 4 MG TAB.RAPDIS TRANSLINGU (19:53)
[2022-03-19] MEDS: oxyCODONE HCl Immed Release 5 MG TABLET 10 MG PO (19:53)
[2022-03-19] MEDS: Lidocaine HCl 2 % MPF 5 ML VIAL 15 ML INFILTRATI (19:54)
[2022-03-19 20:58] VITALS: PULSE 98; O2SAT 93
[2022-03-19] MEDS: Morphine Sulfate ER 30 MG TABLET.ER PO (21:00)
--- NOTE | 2022-03-19 22:02 | MHC.CM.PN ---
Dr Grande spoke with patient and friend/HCP Maddy Cochranerson at length regarding diagnosis and prognosis, including gravity of pt condition and limited life expectancy. Dr. Grande spoke with patient regarding hospice at this time. CM met with pt and Maddy. Pt admitted with acute resp failure, malignant ascites, singet ring cell adenocarcinoma, metastatic ademncarcinoma. Pt A&Ox4. Pt is emaciated and frail. Nods off at times during interview. Pt intermittently saddened and teary about prognosis. Pt expressed gratitude for Dr. Grande being so honest with her. Pt tells CM she was diagnosed a month ago at [facility] and the doctor there told her she had 6 months to live. Pt asked CM how long she had to live. CM explained that no one really knows, but now is the time for hospice. Pt requiring oxygen and pain management. Pt had paracentesis in the ED for 2100 cc fluid. Discussed plan of care, including admission for pain management, oxygen support and referrals for hospice at home. Pt will likely need oxygen at home. Pt and HCP are agreeable to this plan of care. Will consult [facility] and Hospice. CM will f/u in am with hospice. Pt expressed wish to be at home. Understands that hospice will keep her comfortable with medications, but will not actively treat her cancer. Pt is agreeable. PCP is Dr. Martinez. Pt requests her HCP on file to be changed. HCP/ friend #1 Maddy Gambino ([phone]). HCP #2, mother Raya Austin ([phone]). New HCP reviewed, completed and signed. Copies given. Uploaded into [facility] [employer] and [facility] [place] [employer].Maddy cares for patient. Patient lives with Maddy. Maddy has worked as a [employer] and understands that hospice does not provide caretakers and she plans to care for patient along with patients family. Currently patient has no services and no DME. Covid vax status is unknown at this time. D/C plan is home with referral to hospice. Pt will need oxygen. Pt may need transportation home. CM to follow for d/c needs.
--- NOTE | 2022-03-20 02:10 | PM.EVENT ---
Event Note Date of Service: 03/20/22 Event Note: note: Around 02:00 RN mentioned the patient is to be . I went and examined the patient; patient was not responding, no corneal reflex, asystole on the monitor, pupils are fixed and dilated. Patient pronounced on 03/20/2022 at 02:05AM. Family notified
--- NOTE | 2022-03-20 02:33 | PC.NURSE ---
This RN contacted [facility] to refer the pt after passing.
--- NOTE | 2022-03-20 11:07 | PM.DDS ---
Discharge Sum: Prov Provider Primary care physician: Unknown Physician Admitting clinician: Tone Sánchez Attending physician on admission: Tone Sánchez Pronouncing clinician: Rubén Botello Discharge Sum: Diag PCOD Cause of : Acute respiratory failure Contributing Factors (1) Acute respiratory failure with hypoxia: (2) Malignant ascites: (3) Signet ring cell adenocarcinoma: (4) Metastatic adenocarcinoma: Discharge Sum: Summary Date and Time Date of admission: 03/19/22 20:04 Date of : 03/20/22 Time of : 02:05 Summary Details: From my admission H+P, 03/19/22: Ms Austin is a 46 year-old woman with no chronic medical problems until she came in to [facility] 02/06/22 with 3 weeks of abdominal distension and involuntary weight loss and was found to have extensive ascites and multiple neoplastic pelvic masses initially suspected to be ovarian in origin.? She underwent paracentesis x2.? She was discharged on 02/08/22 with follow-up with Gynecology Oncology.? Subsequent CT showed a large pelvic mass mesenteric masses inseparable from bowel loops, extensive retroperitoneal/mediastinal/hilar adenopathy, and pulmonary nodules.? A biopsy revealed a poorly-differentiated adenocarcinoma with signet ring features thought to be GI in origin.? She underwent several paracenteses and met with [facility] on 02/28/22.? Plan was for port placement and palliative chemotherapy with FOLFOX and Avastin.? She was prescribed MSSR + oxycodone and another paracentesis was arranged.? However, she presents today with worsening shortness of breath and abdominal distension with discomfort unrelieved by her pain medications.? In the ED, she was noted to be hypoxic, requiring 15L O2 via NRB.? She does not wish to continue with chemotherapy and is considering hospice services, but would like the ascites drained.? She endorses weight loss, poor appetite, early satiety and severe abdominal and pelvic pain. She underwent therapeutic paracentesis in the ED with relief of abdominal swelling. She was admitted to the hospitalist service with supplemental oxygen. She on 03/20/22 at 02:05 and was pronounced by Rubén Botello. Additional Data Attending physician: Tone Sánchez MD
== END 2022-03-20 09:45 | disposition expired | DRG 240 ==
LOC: HO.ED 19:24 → HO.EDOVER 20:04
PROVIDERS: Admitting Provider Family Medicine; Emergency Provider Emergency Medicine; Visit Provider Family Medicine
DX: C16.9 Malignant neoplasm of stomach, unspecified (principal); J96.01 Acute respiratory failure with hypoxia; R18.0 Malignant ascites; C78.6 Secondary malignant neoplasm of retroperitoneum and peritoneum; Z51.5 Encounter for palliative care; F17.210 Nicotine dependence, cigarettes, uncomplicated; Z71.6 Tobacco abuse counseling; Z88.2 Allergy status to sulfonamides; Z79.899 Other long term (current) drug therapy
CPT/HCPCS: 71045; 93005; 99284; 99285